=== PATIENT | female | born 1990 | race Two or more races ===

== ENCOUNTER 2018-10-04 20:41 | Emergency (ER) | payer BC, OTHER ==
[~2018-10-04] VITALS: Ht 157.5 cm; Wt 61.2 kg
--- NOTE | 2018-10-04 21:40 | NUR ---
patient came walking verbalized she'S been having headache for a week now. patient [id number]. no respiratory distress noted.
--- NOTE | 2018-10-04 21:50 | NUR ---
dr: david at bedside examined patient .
--- NOTE | 2018-10-04 22:13 | NUR ---
patient back from CT. tolerated test.
--- NOTE | 2018-10-04 23:27 | NUR ---
Patient discharged to home in stable conditon. Written and verbal after care instructions given. Patient verbalizes understanding of instructions.
[2018-10-04 23:29] VITALS: BP 130/61
== END 2018-10-04 23:31 | disposition home or self-care (01) ==
LOC: EDBD 20:44 → ER 20:44
DX: S06.0X0A Concussion without loss of consciousness, initial encounter (principal); F17.200 Nicotine dependence, unspecified, uncomplicated; Z88.5 Allergy status to narcotic agent; W22.8XXA Striking against or struck by other objects, initial encounter; Y93.I1 Activity, roller coaster riding; Y92.89 Other specified places as the place of occurrence of the external cause; Y99.8 Other external cause status
CPT/HCPCS: 70450; A4663

== ENCOUNTER 2019-05-16 11:20 | Emergency (ER) | payer BC, OTHER ==
[~2019-05-16] VITALS: Ht 157.5 cm; Wt 61.2 kg
[2019-05-16 11:59] LABS: BASOPHILS % (AUTO) 0.7 % (0.0-2.0); EOSINOPHILS # (AUTO) 0.1 K/uL (0.0-0.7); EOSINOPHILS % (AUTO) 1.3 % (0.0-7.0); HEMATOCRIT 39.5 % (31.2-41.9); HEMOGLOBIN 12.8 g/dL (10.9-14.3); LYMPHOCYTES % (AUTO) 33.2 % (20.5-51.5); MEAN CORPUSCULAR HEMOGLOBIN 27.2 uug (24.7-32.8); MEAN CORPUSCULAR HGB CONC 32 g/dL (32.3-35.6); MEAN CORPUSCULAR VOLUME 84.1 fL (75.5-95.3); MONOCYTES # (AUTO) 0.5 K/uL (2.0-10.0); MONOCYTES % (AUTO) 7.6 % (0.0-11.0); NEUTROPHILS # (AUTO) 3.5 K/uL (1.8-8.9); NEUTROPHILS % (AUTO) 57.2 % (38.5-71.5); PLATELET COUNT (AUTO) 181 K/uL (179-408); WHITE BLOOD COUNT (AUTO) 6.1 K/uL (3.8-11.8)
[2019-05-16 12:10] LABS: BILIRUBIN,TOTAL 0.5 mg/dL (0.2-1.0); CREATININE 0.6 mg/dL (0.6-1.3); POTASSIUM 3.8 mmol/L (3.5-5.1); TOTAL PROTEIN, SERUM 7.7 g/dL (6.4-8.2)
[2019-05-16 12:15] LABS: *URINE HCG, QUAL NEGATIVE (NEGATIVE)
--- NOTE | 2019-05-16 12:47 | NUR ---
Patient discharged to home in stable conditon. Written and verbal after care instructions given. Patient verbalizes understanding of instructions.
== END 2019-05-16 12:48 | disposition home or self-care (01) ==
LOC: ER 11:20
DX: R23.3 Spontaneous ecchymoses (principal); F17.200 Nicotine dependence, unspecified, uncomplicated; Z88.5 Allergy status to narcotic agent
CPT/HCPCS: 36415; 84703; 85025; 85730; A4663

== ENCOUNTER 2019-12-25 15:52 | Emergency (ER) | payer BC, OTHER ==
[~2019-12-25] VITALS: Ht 157.5 cm; Wt 63.5 kg
--- NOTE | 2019-12-25 16:36 | NUR ---
PT WAS EVALUATED BY ER MD DR MORROW. PT WAS D/C'd TO HOME. D/C INSTRUCTIONS GIVEN TO THE PT.
[2019-12-25 16:44] VITALS: BP 125/69
== END 2019-12-25 16:45 | disposition home or self-care (01) ==
LOC: ER 15:57
DX: B34.9 Viral infection, unspecified (principal); R05 Cough; Z20.828 Contact with and (suspected) exposure to other viral communicable diseases
CPT/HCPCS: A4663